=== PATIENT | male | born 1960 | race Two or more races ===

== ENCOUNTER 2017-10-11 08:20 | Day surgery (SDC) | payer OTHER ==
[~2017-10-11 08:20] MED LIST: BACTRIM DS TABL1 TAB PO; DALMANE30 MG PO; Ditropan PO; HYOSCYAMINE0.125 M1 SL; LIPITOR20 MG PO; LOPERAMIDE2 MG PO; Mylicon 125MG PO; NORFLEX100MG PO; PERCOCET 5/3251 TAB PO; SINGULAIR10 MG PO; TAMS0.4C PO; ZANAFLEX2 M1 PO; ZOLOFT50 MG PO; ZOLPIDEM TARTRA10 MG PO; ZYPREXA5 MG PO; [UNRECOGNIZED DRUG - OTHER] PO
== END 2017-10-11 13:45 | disposition home or self-care (01) ==
LOC: AMB-ENDOS 08:20
DX: K62.89 Other specified diseases of anus and rectum (principal); Z85.048 Personal history of other malignant neoplasm of rectum, rectosigmoid junction, and anus; Z93.3 Colostomy status; Z08 Encounter for follow-up examination after completed treatment for malignant neoplasm

== ENCOUNTER 2018-08-15 06:49 | Day surgery (SDC) | payer OTHER | END 2018-08-15 09:55 | disposition home or self-care (01) | LOC: AMB-ENDOS 06:49 | DX: R19.8 Other specified symptoms and signs involving the digestive system and abdomen (principal); Z93.3 Colostomy status ==